=== PATIENT | female | born 1990 | race Caucasian/White ===

== ENCOUNTER → 2020-01-16 08:04 | Outpatient (CLI) | payer OTHER, SELFPAY ==
--- NOTE | 2020-01-16 08:07 | MR_ITS ---
PROCEDURE: MR HEAD/BRAIN WO/W CON CLINICAL INDICATION: MIGRAINE W/AURA AND W/OUT STATUS, PARESTHESIA, CHANGES IN Severe headache. History of subarachnoid hemorrhage, memory loss COMPARISON: HDWO CT HEAD W/O CONTRAST from 02/22/2017 TECHNIQUE: Routine multiplanar multi echo sequences are performed without and with gadolinium enhancement. FINDINGS: No midline shift, mass effect, intracranial hemorrhage, or hydrocephalus is evident. No evidence of acute infarction. The cerebellopontine angles, cerebellum, and brainstem have an unremarkable appearance. There is normal call-white matter differentiation. No enhancing lesions are evident. The pituitary, optic chiasm, corpus callosum, and craniocervical junction have an unremarkable appearance. There is a retention cyst in the floor the left maxillary sinus measuring 16 mm. No mastoid effusion or sinus air-fluid level. IMPRESSION: The central negative MRI of the brain without and with contrast with no acute intracranial findings Dictated by: Roberto Valero MD 01/17/2020 10:06 Electronically signed by Roberto Valero MD in [place] 01/17/2020 10:06
--- NOTE | 2020-01-16 08:08 | MR_ITS ---
PROCEDURE: MR ANGIO HEAD WO CON CLINICAL INDICATION: MIGRAINE W/AURA AND W/OUT STATUS, PARESTHESIA, CHANGES IN Severe headache with visual disturbance, history of subarachnoid hemorrhage COMPARISON: HDO CT HEAD W/O CONTRAST from 01/29/2017 TECHNIQUE: 3D [id number] images obtained without contrast. FINDINGS: No aneurysm, arteriovenous malformation, intracranial occlusive process, or other significant anomaly. Has the patient had other imaging modalities to support these findings? There was intracranial hemorrhage noted on the CT scan of 01/29/2017. IMPRESSION: Negative MRA of the brain. Please correlate with previous exams/outside studies if available. Dictated by: Roberto Valero MD 01/17/2020 17:38 Electronically signed by Roberto Valero MD in [place] 01/17/2020 17:38
== END ==
PROVIDERS: PCP Internal Medicine Adolescent Medicine; Visit Provider Nurse Practitioner Family
DX: G43.109 Migraine with aura, not intractable, without status migrainosus (principal); R20.2 Paresthesia of skin; H53.9 Unspecified visual disturbance; R47.1 Dysarthria and anarthria; Z83.79 Family history of other diseases of the digestive system
CPT/HCPCS: 70544; 70553; A9576

== ENCOUNTER → 2022-08-28 10:10 | Outpatient (CLI) | payer OTHER, SELFPAY | PROVIDERS: PCP Nurse Practitioner Family; Visit Provider Nurse Practitioner Family | DX: R30.0 Dysuria (principal) | CPT/HCPCS: 87086 ==

== ENCOUNTER 2023-06-11 13:35 | Emergency (ER) | payer OTHER, SELFPAY ==
[2023-06-11 13:40] VITALS: BP 121/74; PULSE 76; RESP 18; TEMP 37.1; O2SAT 99; BMI 29.0
--- NOTE | 2023-06-11 13:45 | XR_ITS ---
PROCEDURE INFORMATION: Exam: XR Left Foot Exam date and time: 06/11/2023 3:06 PM Age: 33 years old Clinical indication: Injury or trauma; Other: Stepped on large nail; Puncture; Foot; Left; Foreign body involvement not specified TECHNIQUE: Imaging protocol: Radiologic exam of the left foot. Views: 3 or more views. Total images: 3 COMPARISON: No relevant prior studies available. FINDINGS: Bones/joints: No evidence of acute fracture or dislocation. Soft tissues: Mild soft tissue swelling. No evidence of radiopaque foreign bodies. IMPRESSION: 1. No evidence of acute fracture or dislocation. 2. Mild soft tissue swelling. 3. No evidence of radiopaque foreign bodies.
--- NOTE | 2023-06-11 14:05 | EXP.UTC ---
Discharge Plan Disposition Patient Disposition: Home, Self-Care Condition: Good Prescriptions Prescriptions: New clindamycin HCl 300 mg capsule 300 mg PO TID Qty: 30 0RF levofloxacin 500 mg tablet 500 mg PO DAILY Qty: 5 0RF Referrals Follow up/Referrals: Erika Enrique DO [Primary Care Provider] - See instructions Clinical Impressions Clinical Impression: Puncture wound Instructions Patient Instructions: DI for Puncture Wound Discharge ED [facility] HPI General Stated complaint: AO 06/11 stepped on nail LT foot, tetanus shot Mode of Arrival: Ambulatory Source of Information: Patient Limitations: No Limitations Time Seen by Provider: 06/11/23 14:05 Description of Symptoms (Recalled from Triage Doc. by RN): PATIENT C/O PUNCTURE WOUND TO LEFT FOOT AFTER STEPPING ON A BENT METAL HANS HEENT Symptoms (Recalled from RN notes): No Resp Symptoms (Recalled from RN notes): No Skin Symptoms (Recalled from RN notes): Yes MS Symptoms (Recalled from RN notes): No Functional Status (Recalled from RN notes): WNL History of Present Illness Provider Complaint: 33 yr old female presents for a puncture wound to left foot. pt states she was at a birthday [employer] when she stepped a a thin bent metal hans and it went through her shoe into her foot Related Data Previous Rx's Medication Instructions Recorded clindamycin HCl 300 mg capsule 300 mg PO TID #30 caps 06/11/23 levofloxacin 500 mg tablet 500 mg PO DAILY #5 tabs 06/11/23 Allergies Allergy/AdvReac Type Severity Reaction Status Date / Time No Known Allergies Allergy Unverified 11/08/17 14:47 Worker's Comp Is this a Worker's Comp case?: No [facility] Disclaimer: The information contained in this section may have been updated after the patient was seen, as this information can be updated by other users. 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) Smoking Status: Never smoker second hand exposure: No alcohol intake: never current occupational status: employed Travel in the last 8 weeks: None household members: spouse housing: house current occupational exposures/hazards: No ROS Obtained: Yes All systems reviewed & no additional complaints except as documented Constitutional Constitutional: Reports system reviewed and no additional complaints, except as documented Eyes Eyes: Reports system reviewed and no additional complaints, except as documented ENT Ears, Nose, Mouth, and Throat: Reports system reviewed and no additional complaints, except as documented Cardiovascular Cardiovascular: Reports system reviewed and no additional complaints, except as documented Respiratory Respiratory: Reports system reviewed and no additional complaints, except as documented Gastrointestinal Gastrointestingal: Reports system reviewed and no additional complaints, except as documented Genitourinary Female Genitourinary: Reports system reviewed and no additional complaints, except as documented Musculoskeletal Musculoskeletal: Reports system reviewed and no additional complaints, except as documented Integumentary/Breasts Skin/Breast: Reports system reviewed and no additional complaints, except as documented, Reports as per HPI, Reports wounds and Reports other Neurologic Neurologic: Reports system reviewed and no additional complaints, except as documented Allergic/Immunologic Allergic/Immunologic: Reports system reviewed and no additional complaints, except as documented Physical Exam General General appearance: alert and in no apparent distress Head Head exam: atraumatic, normocephalic and normal inspection Eye Eye exam: Present normal appearance and PERRL ENT ENT exam: Present normal exam, normal oropharynx, mucous membranes moist and normal external ear exam Neck N
[2023-06-11 14:10] VITALS: BP 121/74; PULSE 76; RESP 18; TEMP 37.1; O2SAT 99
== END 2023-06-11 15:20 | disposition home or self-care (01) ==
PROVIDERS: Emergency Provider Nurse Practitioner Family; PCP Pediatrics
DX: S91.332A Puncture wound without foreign body, left foot, initial encounter (principal); Z23 Encounter for immunization; W45.8XXA Other foreign body or object entering through skin, initial encounter
CPT/HCPCS: 73630; 90471; 90715; 96372; 99204; 99212; G0463